=== PATIENT | male | born 1960 | race African-American/Black ===

== ENCOUNTER 2020-08-07 11:49 | Outpatient (CLI) | payer OTHER | END 2020-08-07 11:50 | disposition home or self-care (01) | LOC: CSHMRI 11:49 | PROVIDERS: ATTEND Neurological Surgery | DX: M51.06 Intervertebral disc disorders with myelopathy, lumbar region (principal); Z98.890 Other specified postprocedural states; M47.816 Spondylosis without myelopathy or radiculopathy, lumbar region; M48.061 Spinal stenosis, lumbar region without neurogenic claudication; T81.89XA Other complications of procedures, not elsewhere classified, initial encounter | CPT/HCPCS: 72158; 82565 ==

== ENCOUNTER → 2020-08-25 | Day surgery (SDC) | payer OTHER ==
[~2020-08-25] MED LIST: Fentanyl 100 MCG/2 ML VIAL ONE; Lidocaine 1% PF 5 ML VIAL ONE; Midazolam HCl 5 mg/5 ml Vial ONE; Sodium Bicarbonate 2.5 MEQ/5 ML VIAL ONE
[2020-08-25 18:02] LABS: Clarity Hazy (Clear); Tube # EDTA
[2020-08-25 18:03] LABS: BF Color Pink
== END ==
LOC: CSHCT 11:07
PROVIDERS: ATTEND Neurological Surgery
DX: M54.5 Low back pain (principal)
CPT/HCPCS: 77012; 87070; 87205; 89051; 99152; 99153; J2250; J3010

== ENCOUNTER 2020-09-11 20:01 | Emergency (ER) | payer OTHER ==
[2020-09-11] MEDS ORDERED: HYDROmorphone 0.5 MG/0.5 ML SYRINGE ONE (22:50)
[2020-09-11] MEDS ORDERED: Ketorolac Tromethamine 15 MG/ML VIAL ONE (22:50)
[2020-09-11 23:12] LABS: #Basophils 0.1 10x3/uL (0.0-0.2); #Eosinphils 0.1 10x3/uL (0.0-0.5); #Monocytes 0.7 10x3/uL (0.0-1.1); #Neutrophils 4.8 10x3/uL (1.5-8.4); %Basophils 0.9 % (0.0-2.0); %Eosinophils 1.5 % (0.0-6.0); %Lymphocytes 24.5 % (18.0-47.0); %Monocytes 8.7 % (0.0-10.0); %Neutrophils 63.7 % (40.0-75.0); Hemoglobin 12.9 g/dL (13.5-17.5); Mean Corpuscular HGB CONC 31.9 g/dL (32.0-36.0); Mean Corpuscular Volume 87.8 fl (81.2-95.1); Mean Platelet Volume 8.6 fl (7.4-10.4); Platelet Count 513 10x3/uL (150-450); RBC Distribution Width 13.8 % (11.5-14.5); White Blood Cell (WBC) Count 7.6 10x3/uL (3.5-10.5)
[2020-09-11 23:26] LABS: ALT (SGPT) 24 U/L (8-55); AST (SGOT) 17 U/L (5-34); Albumin 4.3 g/dL (3.4-4.8); Alkaline Phosphatase 93 U/L (40-110); Anion Gap 14 mmol/L (10-20); BUN (Urea Nitrogen) 18 mg/dL (8.4-25.7); Bilirubin, Total 0.4 mg/dL (0.2-1.2); Calc. Creatinine Clearance 0 mL/min (70-130); Calcium 9.6 mg/dL (7.8-10.44); Carbon Dioxide 24 mmol/L (23-31); Chloride 101 mmol/L (98-107); Globulin 3.7 g/dL (2.4-3.5); Glucose 160 mg/dL (80-115); Potassium 4.3 mmol/L (3.5-5.1); Sodium 135 mmol/L (136-145)
[2020-09-12 00:23] LABS: Bilirubin Neg (Negative); Blood, Urine Negative (Negative); Clarity Clear (Clear); Glucose, Urine (Dipstick) 100 mg/dL (Negative); Ketone, Urine Negative (Negative); Leukocyte Negative (Negative); Nitrite Negative (Negative); Protein, Urine (Dipstick) Negative (Neg-Trace); Urobilinogen Normal mg/dL (Less than 2)
[2020-09-12] MEDS ORDERED: cefTRIAXone\\ROCEPHIN 2 GM VIAL ONE (00:40)
[2020-09-12] MEDS ORDERED: HYDROmorphone 0.5 MG/0.5 ML SYRINGE ONE ×2 (00:57→03:24)
== END 2020-09-12 03:37 | disposition short-term general hospital (02) ==
LOC: CSHERS 20:01
DX: M86.9 Osteomyelitis, unspecified (principal); M46.40 Discitis, unspecified, site unspecified; E11.9 Type 2 diabetes mellitus without complications; E78.5 Hyperlipidemia, unspecified; I10 Essential (primary) hypertension; E78.00 Pure hypercholesterolemia, unspecified
CPT/HCPCS: 36415; 72170; 80053; 81003; 85025; 85652; 86140; 87040; 96365; 96366; 96367; 96375; 96376; J0696; J1170; J1885; J3370

== ENCOUNTER 2020-09-28 21:18 | Emergency (ER) | payer OTHER | END 2020-09-28 23:20 | disposition left against medical advice (07) | LOC: CSHERS 21:18 | DX: Z53.21 Procedure and treatment not carried out due to patient leaving prior to being seen by health care provider (principal) ==

== ENCOUNTER 2025-03-24 10:20 | Outpatient (CLI) | payer OTHER | END 2025-03-24 10:21 | disposition home or self-care (01) | LOC: CSHMRI 10:20 | PROVIDERS: ATTEND Orthopaedic Surgery Hand Surgery | DX: M87.9 Osteonecrosis, unspecified (principal); M65.832 Other synovitis and tenosynovitis, left forearm; S66.812A Strain of other specified muscles, fascia and tendons at wrist and hand level, left hand, initial encounter; S63.522A Sprain of radiocarpal joint of left wrist, initial encounter; S63.592A Other specified sprain of left wrist, initial encounter ==